=== PATIENT | female | born 1940 | race African-American/Black ===

== ENCOUNTER 2021-08-16 09:28 | Outpatient (REF) | payer OTHER, SELFPAY ==
[2021-08-16 10:01] LABS: MANUAL DIFF FLAG NO
[2021-08-16 10:23] LABS: Basophils Percent Auto 0.5 % (0-2); Eosinophils Percent Auto 0.8 % (0-4); Hemoglobin 11.4 g/dl (12.0-16.0); Imm Gran Abs Auto 0.01 X10*3/uL (0.00-0.03); Imm Gran Pct Auto 0.3 % (0.0-0.4); Lymphocytes Absolute Auto 1.7 X10*3/uL (1.2-4.9); Lymphocytes Percent Auto 45.3 % (20-40); Mean Corpuscular Hemoglobin 26.7 pg (27.0-33.0); Mean Platelet Volume 11.1 fL (9.4-12.3); Monocytes Absolute Auto 0.4 X10*3/uL (0.1-1.2); Monocytes Percent Auto 9.9 % (2-11); Neutrophils Absolute Auto 1.7 x10*3/uL (2.0-8.3); Neutrophils Percent Auto 43.2 % (45-73); Platelet Count 309 X10*3/uL (160-400); Red Blood Count 4.27 X10*6/uL (4.20-5.50); Red Cell Distribution Width 14.1 % (11.0-16.0); White Blood Count 3.8 X10*3/uL (4.8-10.8)
[2021-08-16 10:56] LABS: Alanine Aminotransferase 16 U/L (0-31); Albumin Level 4.1 g/dL (3.5-5.0); Alkaline Phosphatase 61 U/L (39-117); Anion Gap 11 (12-20); Aspartate Amino Transferase 22 U/L (5-31); Bilirubin Total 0.4 mg/dL (0.0-1.0); Blood Urea Nitrogen 12 mg/dL (9-16); Calcium 9.8 mg/dL (8.4-10.2); Carbon Dioxide 30 mmol/L (22-29); Chloride 107 mmol/L (96-108); Cholesterol 186 mg/dL; Estimated Glomerular Filt Rate > 60; Glucose Fasting 88 mg/dL (60-99); HDL Cholesterol 88 mg/dL; LDL Cholesterol Calculated 87 mg/dl; Potassium 4.7 mmol/L (3.3-5.1); Sodium 143 mmol/L (135-145); Total Protein 6.7 g/dL (6.5-8.0); Triglycerides 58 mg/dL
[2021-08-16 11:10] LABS: Creatinine Urine 90.51 mg/dL; Microalbum/Creatinine Ratio Ur 9.9 ug/mg cr
[2021-08-16 11:19] LABS: TSH reflex Free T4 0.85 uIU/mL (0.32-4.0)
[2021-08-20 07:11] LABS: Vitamin D 25-OH, D2 <4 ng/mL; Vitamin D 25-OH, D3 38 ng/mL; Vitamin D 25-OH, Total 38 ng/mL (30-100)
== END 2021-08-16 09:29 | disposition home or self-care (01) ==
LOC: HO.LAB 09:28
PROVIDERS: PCP Nurse Practitioner Family; Visit Provider Nurse Practitioner Family
DX: E78.5 Hyperlipidemia, unspecified (principal); I10 Essential (primary) hypertension; E55.9 Vitamin D deficiency, unspecified; E78.00 Pure hypercholesterolemia, unspecified; E11.9 Type 2 diabetes mellitus without complications; Z76.89 Persons encountering health services in other specified circumstances
CPT/HCPCS: 36415; 80053; 80061; 82043; 82306; 84443; 85025

== ENCOUNTER 2021-09-13 11:27 | Outpatient (REF) | payer OTHER, SELFPAY ==
--- NOTE | ~2021-09-13 | MM_ITS ---
EXAMINATION: MM SCREENING DIGITAL BREAST TOMOSYNTHESIS, BILATERAL CLINICAL INFORMATION: Screening. Asymptomatic. The lifetime risk of breast cancer based on the Tyrer-Cuzick Model is 1.4%. COMPARISON: Mammography: April 09, 2020 and studies dating back to April 13, 2017 TECHNIQUE: Digital breast tomosynthesis is performed in both the craniocaudal and mediolateral oblique views along with computer-aided detection (CAD). Synthesized 2D images are generated from the tomosynthesis. FINDINGS: The breasts are heterogeneously dense, which may obscure small masses (ACR BI-RADS breast composition Category c). There are no significant masses, abnormal calcifications, or other abnormalities. MM/MM tomosynthesis screening BI IMPRESSION: There are no significant changes from prior study. ASSESSMENT: BI-RADS 1: Negative RECOMMENDATION: Routine annual mammography screening. This patient's information was entered into a reminder system with a target due date for their next mammogram.
== END 2021-09-13 11:28 | disposition home or self-care (01) ==
LOC: HO.MAMMO 11:27
PROVIDERS: Visit Provider Nurse Practitioner Family
DX: Z12.31 Encounter for screening mammogram for malignant neoplasm of breast (principal)
CPT/HCPCS: 77063; 77067

== ENCOUNTER 2021-11-20 09:41 | Outpatient (REF) | payer OTHER, SELFPAY ==
--- NOTE | ~2021-11-20 | MM_ITS ---
EXAMINATION: BONE DENSITOMETRY CLINICAL INDICATION: Amenorrhea, unspecified. COMPARISON: This is the patient's baseline examination. TECHNIQUE: Using a [employer] DXA System (software version: 13.1) manufactured by [employer], dual-energy x-ray absorptiometry was performed of the lumbar spine and left hip. The images are of good technical quality. Summary results are attached. FINDINGS: AP SPINE L1-L4: BMD 1.327 g/cm2, Z-score 1.9, T-score 1.2, normal. LEFT FEMUR, NECK: BMD 0.988 g/cm2, Z-score 0.6, T-score -0.4, normal. LEFT FEMUR, TOTAL: BMD 1.138 g/cm2, Z-score 1.7, T-score 1.0, normal. IDENTIFIED RISK FACTORS: Menopause. HISTORY OF FRACTURE: None listed. MEDICATIONS: Calcium supplements or multivitamin, vitamin D. MM/XR DEXA axial skeleton IMPRESSION: 1. DIAGNOSIS: Normal bone density based on the lowest T-score value of -0.4 in the femoral neck applying World Health Organization criteria. 2. 10-YEAR FRACTURE RISK PREDICTION, FRAX: Major osteoporotic fracture (clinical spine, forearm, hip or shoulder) 4.2%. Hip fracture 0.6%. 3. Treatment Recommendations: NOF guidelines recommend consideration for treatment in postmenopausal women and men age 50 and older presenting with the following: -A hip or vertebral (clinical or morphometric) fracture. -T-score less than or equal to -2.5 at the femoral neck or spine after appropriate evaluation to exclude secondary causes. -Low bone mass at the hip or spine and a 10-year fracture probability by FRAX of greater than or equal to 3% for hip fracture or greater than or equal to 20% for major osteoporotic fracture based on the [place] adapted WHO algorithm. 4. Other Recommendations: All treatment decisions require clinical judgment and consideration of individual patient factors, including patient preferences, comorbidities, previous drug use, risk factors not captured in the FRAX model (e.g. frailty, falls, vitamin D deficiency, increased bone turnover, interval significant decline in bone density) and possible under or overestimation of fracture risk by FRAX. FUTURE SCAN RECOMMENDATION: People with diagnosed cases of osteoporosis or at high risk for fracture should have regular bone mineral density tests. For patients eligible for Medicare, routine testing is allowed once every 2 years. The testing frequency can be increased to one year for patients who have rapidly progressing disease, those who are receiving or discontinuing medical therapy to restore bone mass, or have additional risk factors.
== END 2021-11-20 09:42 | disposition home or self-care (01) ==
LOC: HO.MAMMO 09:41
PROVIDERS: Visit Provider Nurse Practitioner Family
DX: Z13.820 Encounter for screening for osteoporosis (principal); N91.2 Amenorrhea, unspecified; Z78.0 Asymptomatic menopausal state
CPT/HCPCS: 77080

== ENCOUNTER 2021-12-25 07:39 | Outpatient (REF) | payer OTHER, SELFPAY ==
[2021-12-25 11:18] LABS: MANUAL DIFF FLAG NO
[2021-12-25 11:30] LABS: Basophils Percent Auto 0.5 % (0-2); Eosinophils Absolute Auto 0.1 X10*3/uL (0.0-0.4); Eosinophils Percent Auto 1.1 % (0-4); Hematocrit 35.9 % (37.0-47.0); Imm Gran Abs Auto 0.01 X10*3/uL (0.00-0.03); Imm Gran Pct Auto 0.2 % (0.0-0.4); Lymphocytes Absolute Auto 2.2 X10*3/uL (1.2-4.9); Lymphocytes Percent Auto 48.9 % (20-40); Mean Corpuscular HGB Conc 30.6 g/dl (31.0-35.0); Mean Corpuscular Hemoglobin 26.7 pg (27.0-33.0); Mean Corpuscular Volume 87.1 fL (80.0-98.0); Monocytes Absolute Auto 0.4 X10*3/uL (0.1-1.2); Monocytes Percent Auto 8.3 % (2-11); Neutrophils Absolute Auto 1.8 x10*3/uL (2.0-8.3); Platelet Count 323 X10*3/uL (160-400); Red Blood Count 4.12 X10*6/uL (4.20-5.50); Red Cell Distribution Width 15.3 % (11.0-16.0); White Blood Count 4.4 X10*3/uL (4.8-10.8)
[2021-12-25 11:37] LABS: Estimated Average Glucose 128 mg/dL; Hemoglobin A1c % 6.1 %
[2021-12-25 11:48] LABS: Alanine Aminotransferase 33 U/L (0-31); Albumin Level 4.2 g/dL (3.5-5.0); Alkaline Phosphatase 53 U/L (39-117); Anion Gap 12 (12-20); Aspartate Amino Transferase 28 U/L (5-31); Bilirubin Total 0.5 mg/dL (0.0-1.0); Blood Urea Nitrogen 11 mg/dL (9-16); Calcium 9.9 mg/dL (8.4-10.2); Carbon Dioxide 26 mmol/L (22-29); Chloride 109 mmol/L (96-108); Cholesterol 165 mg/dL; Estimated Glomerular Filt Rate 50; Glucose Fasting 107 mg/dL (60-99); HDL Cholesterol 81 mg/dL; Iron 100 mcg/dL (30-160); LDL Cholesterol Calculated 71 mg/dl; Percent Iron Saturation 27 % (15-50); Potassium 4.5 mmol/L (3.3-5.1); Sodium 142 mmol/L (135-145); Total Iron Binding Capacity 372 mcg/dL (228-428); Total Protein 6.7 g/dL (6.5-8.0); Triglycerides 68 mg/dL; Unsaturated Iron Binding 272 ug/dL
[2021-12-25 11:59] LABS: Creatinine Urine 205.32 mg/dL; Microalbum/Creatinine Ratio Ur 12.6 ug/mg cr
[2021-12-25 12:10] LABS: TSH reflex Free T4 1.49 uIU/mL (0.32-4.0)
== END 2021-12-25 07:40 | disposition home or self-care (01) ==
LOC: HO.HMGCLDS 07:39
PROVIDERS: Visit Provider Nurse Practitioner Family
DX: I10 Essential (primary) hypertension (principal); E11.9 Type 2 diabetes mellitus without complications; D64.9 Anemia, unspecified; E78.00 Pure hypercholesterolemia, unspecified; E78.5 Hyperlipidemia, unspecified
CPT/HCPCS: 36415; 80053; 80061; 82043; 83036; 83540; 84443; 85025

== ENCOUNTER 2022-01-10 12:05 | Outpatient (REF) | payer OTHER, SELFPAY | END 2022-01-10 12:06 | disposition home or self-care (01) | LOC: HO.HMGCX 12:05 | PROVIDERS: Visit Provider Nurse Practitioner Family | DX: Z13.89 Encounter for screening for other disorder (principal) ==

== ENCOUNTER 2022-01-17 10:00 | Outpatient (RCR) | payer OTHER, SELFPAY ==
--- NOTE | 2022-01-10 12:09 | MHC.PT.EP ---
[facility] [place] Office [place] Office [place] [facility] [address] Olivia Munoz [address] [phone] F: [phone] F: [phone] F: [phone] F: [phone] Physical Therapy Plan of Care Date of Evaluation: Date of Surgery: Diagnosis: low back pain Assessment: 81 y/o female referred to PT with LBP. 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 Reports difficulty with standing to wash dishes, walking, sitting unsupported, and sleeping. Examination shows decreased hip and core strength, altered SI mechanics with L LE longer than R, decreased hip and lumbar ROM, increased QL/lumbar tension, and impiared gait pattern. Recommend PT 1x/week for 6 weeks to address impairments, implement HEP, and optimize functional mobility. Frequency and Duration: The patient will be seen 1x/week for 6 weeks Short Term Goals: 3 weeks 1. I with HEP 2. Improve lumbar flexion to 100% to faciliate don/doffing shoes 3. I with lumbar roll Rn Advanced Goals: 6 weeks 1. I with HEP and self managemetn of sx 2. Pt will be able to perform abdmoinal brace prior to transitional movements to faciliate 50% decrease in LBP. 3. Pt will be able to ambulate > 15min with decreased frontal plane movements Treatment Plan: Modalities to reduce pain, spasms and effusion. Manual therapy to restore motion and function. Therapeutic exercise to improve strength and flexibility. Neuromuscular re-education for posture and balance. Therapeutic activities to return to functional activities of daily living. Electronically signed by: Vivi Franklin PT Please sign and return to therapist. Thank you for your referral.
--- NOTE | 2022-01-31 13:18 | MHC.PT.DC ---
[facility] [place] Office [place] [facility] [place] Office [address] Olivia Munoz [address] [phone] F: [phone] F: [phone] F: [phone] F: [phone] Physical Therapy Discharge Report Diagnosis: low back pain Date of Surgery: Date of Evaluation: 01/10/22 Date of Discharge: 01/31/22 Treatments to Date: 2 Cancellations to Date: 0 No Shows to Date: 0 Discharge Status: Independent with HEP Patient Elected to Stop Discharge Summary: Pt attended 2 visits, however elected to self d/c due to high co-pay. Distributed extensive HEP Electronically signed by: Vivi Franklin PT Please sign and return to therapist. Thank you for your referral.
== END 2022-01-31 13:18 | disposition home or self-care (01) ==
LOC: HO.PTCHIC 10:00
PROVIDERS: PCP Nurse Practitioner Family; Visit Provider Nurse Practitioner Family
DX: M54.50 Low back pain, unspecified (principal); G89.29 Other chronic pain; R26.89 Other abnormalities of gait and mobility
CPT/HCPCS: 97110; 97112; 97162

== ENCOUNTER → 2022-03-31 08:49 | Outpatient (BNVA) | payer OTHER, SELFPAY | PROVIDERS: PCP Nurse Practitioner Family; Visit Provider Anesthesiology | DX: M96.1 Postlaminectomy syndrome, not elsewhere classified (principal); M46.1 Sacroiliitis, not elsewhere classified; M53.3 Sacrococcygeal disorders, not elsewhere classified; G89.4 Chronic pain syndrome | CPT/HCPCS: 99202 ==

== ENCOUNTER 2022-04-15 05:53 | Outpatient (REF) | payer OTHER, SELFPAY ==
--- NOTE | ~2022-04-15 | FL_ITS ---
EXAMINATION: XR FLUOROSCOPY WITH IMAGES CLINICAL INFORMATION: M53.3 - Sacrococcygeal disorders, not elsewhere classified COMPARISON: Outside abdominal radiograph 01/06/2022 (RAYUS). TECHNIQUE: Fluoroscopy performed by Dr. Perez Honeycutt. Fluoroscopy time: 0.1 minutes. Cumulative Dose: 2.28 mGy. DAP: 0.623 Gy-cm2. Images: 1. FINDINGS: Spinal needle overlies mid to lower right SI joint. There is contrast in the periarticular soft tissues with probable early intra-articular contrast. No vasculature communication appreciated. There are multilevel degenerative changes lumbar spine with disc narrowing and vertebral spurring. FL/FL guidance in treatment room IMPRESSION: Fluoroscopy for pain management procedure.
== END 2022-04-15 05:54 | disposition home or self-care (01) ==
LOC: CF 05:53
PROVIDERS: Visit Provider Anesthesiology
DX: M53.3 Sacrococcygeal disorders, not elsewhere classified (principal); M96.1 Postlaminectomy syndrome, not elsewhere classified; M46.1 Sacroiliitis, not elsewhere classified; G89.4 Chronic pain syndrome
CPT/HCPCS: 27096; J2795

== ENCOUNTER → 2022-04-17 08:11 | Outpatient (BNVA) | payer OTHER, SELFPAY | PROVIDERS: PCP Nurse Practitioner Family; Visit Provider Anesthesiology | DX: M96.1 Postlaminectomy syndrome, not elsewhere classified (principal); M46.1 Sacroiliitis, not elsewhere classified; M53.3 Sacrococcygeal disorders, not elsewhere classified; G89.4 Chronic pain syndrome | CPT/HCPCS: Q3014 ==

== ENCOUNTER 2022-05-16 11:04 | Outpatient (REF) | payer OTHER, SELFPAY ==
--- NOTE | ~2022-05-16 | MR_ITS ---
EXAMINATION: MR LUMBAR SPINE WITHOUT AND WITH CONTRAST CLINICAL INFORMATION: Chronic pain syndrome. Lower extremity radicular symptoms. COMPARISON: None. TECHNIQUE: Multiplanar, multisequence imaging was obtained. Intravenous contrast: Gadavist 8 mL. FINDINGS: VERTEBRAL BODIES AND PARASPINAL STRUCTURES: There is a leftward curvature of the spine centered at the L1-L2 level and a rightward curvature centered at the L3-L4 level. There are no acute compression fractures. Chronic fatty marrow endplate changes noted diffusely with scattered areas of endplate edema and enhancement, presumably reactive and most significant at the L4-L5 level where there is a grade 2 anterolisthesis. Moderate loss of disc height with endplate Schmorl's nodes and reduced intradiscal signal noted at the lower thoracic levels. There are mild chronic-appearing superior endplate compression deformities at the T11 and T12 levels. The paraspinal soft tissues are normal. There are chronic fatty atrophic changes in the paraspinal musculature bilaterally. CONUS MEDULLARIS AND CAUDA EQUINE: The distal cord, conus tip, and cauda equina nerve roots are normal. SPINAL LEVELS: L1-L2: Broad-based disc bulge and mild facet arthropathy with mild central canal stenosis and mild bilateral foraminal narrowing. L2-L3: Retrosubluxation and significant loss of disc height with endplate ridging and a posterior disc bulge. Mild facet arthropathy. No significant central canal stenosis. [id number] foraminal narrowing, worse on the right side with a superimposed right foraminal disc protrusion impinging upon the exiting right L2 nerve root. Additional left lateral recess disc extrusion impinges upon the left L3 nerve root. Bulging disc mildly impresses upon the extraforaminal left L2 nerve root laterally. Mild edematous endplate changes. L3-L4: Moderate loss of disc height and broad-based disc bulge with hypertrophic facet arthropathy contributing to mild central canal stenosis and moderate right foraminal narrowing. Left foraminal disc protrusion compresses the exiting left L3 nerve root. Mild edematous endplate changes. L4-L5: Anterolisthesis and advanced facet arthropathy with severe central canal stenosis. Unroofed protruding disc results in severe bilateral foraminal encroachment and compression of both exiting L4 nerve roots. Facet spurring and bulging disc compress the L5 nerve roots in the subarticular zones bilaterally as well. [id number]-zovynuht edematous endplate changes. L5-S1: Mild anterolisthesis and unroofing of the disc with severe facet arthropathy encroaching upon the lateral recesses. No significant central canal stenosis. Osseous spurring and protruding disc posterolaterally on both sides compresses the exiting L5 nerve roots, worse on the right side. MR/MR lumbar spine wo/w con IMPRESSION: 1. Extensive multilevel degenerative disc disease and facet arthropathy with a [id number]-[id number] degenerative sigmoidal-shaped curvature of the lumbar spine. No acute compression fractures. Reactive [id number] multilevel endplate edema. 2. Right foraminal disc protrusion at the L2-L3 level impinging upon the right L2 nerve root. Left lateral recess disc extrusion at the L2-L3 level impinging upon the left L3 nerve root. Lateral bulging disc also impresses upon the left L2 nerve root. 3. Mild central canal stenosis and moderate right foraminal narrowing at the L3-L4 level with a left foraminal disc protrusion compressing the left L3 nerve root. 4. Grade 2 anterolisthesis at the L4-L5 level with advanced facet arthropathy and posterolateral disc protrusions resulting in severe central canal stenosis and bilateral foraminal encroachment. Compression of both L4 in the foramina and the L5 nerve roots in the subarticular zones. 5. Mild anterior subluxation at the L5-S1 level with severe facet arthropathy encroaching upon the lateral recesses. Disc protrusion and osseous spurring posterolaterally on both sides compressing the exiting L5 nerve roots, more so on the right side.
== END 2022-05-16 11:05 | disposition home or self-care (01) ==
LOC: HO.MRI 11:04
PROVIDERS: Visit Provider Anesthesiology
DX: G89.4 Chronic pain syndrome (principal); M54.50 Low back pain, unspecified; M96.1 Postlaminectomy syndrome, not elsewhere classified; R26.89 Other abnormalities of gait and mobility
CPT/HCPCS: 72158; A9585

== ENCOUNTER → 2022-06-11 09:59 | Outpatient (BNVA) | payer OTHER, SELFPAY | PROVIDERS: PCP Nurse Practitioner Family; Visit Provider Anesthesiology | DX: I25.10 Atherosclerotic heart disease of native coronary artery without angina pectoris (principal); M96.1 Postlaminectomy syndrome, not elsewhere classified; M46.1 Sacroiliitis, not elsewhere classified; M53.3 Sacrococcygeal disorders, not elsewhere classified; G89.4 Chronic pain syndrome | CPT/HCPCS: 93005; 99202; 99212 ==